=== PATIENT | male | born 1985 | race Two or more races ===

== ENCOUNTER 2021-09-24 12:07 | Outpatient (REF) | payer BC, SELFPAY ==
[2021-09-24 12:25] LABS: MANUAL DIFF FLAG NO
[2021-09-24 13:06] LABS: Basophils Absolute Auto 0.1 X10*3/uL (0.0-0.2); Basophils Percent Auto 0.9 % (0-2); Eosinophils Absolute Auto 0.3 X10*3/uL (0.0-0.4); Eosinophils Percent Auto 5.1 % (0-4); Hematocrit 44.8 % (42.0-52.0); Hemoglobin 14.9 g/dl (14.0-18.0); Imm Gran Abs Auto 0.01 X10*3/uL (0.00-0.03); Imm Gran Pct Auto 0.2 % (0.0-0.4); Lymphocytes Absolute Auto 1.6 X10*3/uL (1.2-4.9); Lymphocytes Percent Auto 29.8 % (20-40); Mean Corpuscular HGB Conc 33.3 g/dl (31.0-36.0); Mean Corpuscular Hemoglobin 29.9 pg (27.0-33.0); Mean Platelet Volume 10.5 fL (9.4-12.4); Monocytes Absolute Auto 0.5 X10*3/uL (0.1-1.2); Monocytes Percent Auto 8.3 % (2-11); Neutrophils Percent Auto 55.7 % (45-73); Platelet Count 273 X10*3/uL (160-400); Red Blood Count 4.98 X10*6/uL (4.60-5.80); White Blood Count 5.4 X10*3/uL (4.8-10.8)
[2021-09-24 13:36] LABS: Alanine Aminotransferase 37 U/L (0-40); Albumin Level 4.2 g/dL (3.5-5.0); Alkaline Phosphatase 80 U/L (39-117); Anion Gap 14 (12-20); Aspartate Amino Transferase 27 U/L (5-37); Bilirubin Total 0.5 mg/dL (0.0-1.0); Blood Urea Nitrogen 16 mg/dL (9-16); Calcium 9.6 mg/dL (8.4-10.2); Carbon Dioxide 22 mmol/L (22-29); Chloride 110 mmol/L (96-108); Cholesterol 177 mg/dL; Estimated Glomerular Filt Rate > 60; Glucose Random 73 mg/dL (60-115); HDL Cholesterol 38 mg/dL; LDL Cholesterol Calculated 115 mg/dl; Potassium 4.5 mmol/L (3.3-5.1); Sodium 141 mmol/L (135-145); Triglycerides 122 mg/dL
[2021-09-24 13:45] LABS: Thyroid Stimulating Hormone 2.26 uIU/mL (0.32-4.0)
[2021-09-24 14:14] LABS: Vitamin B12 793 pg/mL (200-900)
== END 2021-09-24 12:08 | disposition home or self-care (01) ==
LOC: HO.LAB 12:07
PROVIDERS: PCP Internal Medicine; Visit Provider Internal Medicine
DX: F33.9 Major depressive disorder, recurrent, unspecified (principal); E78.00 Pure hypercholesterolemia, unspecified
CPT/HCPCS: 36415; 80053; 80061; 82607; 82746; 84439; 84443; 85025

== ENCOUNTER 2022-02-16 14:37 | Outpatient (REF) | payer BC, SELFPAY ==
[2022-02-16 16:07] LABS: Influenza A PCR NEGATIVE (Negative); Influenza B PCR NEGATIVE (Negative); Resp Syncy Virus RNA Qual PCR NEGATIVE (Negative); SARS COV2 PCR INHOUSE NEGATIVE (Negative)
== END 2022-02-16 14:38 | disposition home or self-care (01) ==
LOC: HO.LNP 14:37
PROVIDERS: Visit Provider Nurse Practitioner Family
DX: J06.9 Acute upper respiratory infection, unspecified (principal); Z20.822 Contact with and (suspected) exposure to COVID-19
CPT/HCPCS: 0241U

== ENCOUNTER 2024-03-18 08:08 | Outpatient (REF) | payer BC, SELFPAY ==
[2024-03-18 08:19] LABS: MANUAL DIFF FLAG NO
[2024-03-18 09:52] LABS: Basophils Absolute Auto 0.1 X10*3/uL (0.0-0.2); Basophils Percent Auto 0.8 % (0-2); Eosinophils Absolute Auto 0.3 X10*3/uL (0.0-0.4); Eosinophils Percent Auto 5.2 % (0-4); Hematocrit 45.9 % (42.0-52.0); Hemoglobin 15.5 g/dl (14.0-18.0); Imm Gran Abs Auto 0.01 X10*3/uL (0.00-0.03); Imm Gran Pct Auto 0.2 % (0.0-0.4); Lymphocytes Absolute Auto 1.8 X10*3/uL (1.2-4.9); Lymphocytes Percent Auto 29.6 % (20-40); Mean Corpuscular HGB Conc 33.8 g/dl (31.0-36.0); Mean Corpuscular Hemoglobin 30.5 pg (27.0-33.0); Mean Corpuscular Volume 90.2 fL (80.0-98.0); Mean Platelet Volume 9.6 fL (9.4-12.4); Monocytes Absolute Auto 0.5 X10*3/uL (0.1-1.2); Monocytes Percent Auto 7.9 % (2-11); Neutrophils Absolute Auto 3.4 x10*3/uL (2.0-8.3); Neutrophils Percent Auto 56.3 % (45-73); Platelet Count 292 X10*3/uL (160-400); Red Blood Count 5.09 X10*6/uL (4.60-5.80); Red Cell Distribution Width 12.5 % (11.0-16.0)
[2024-03-18 11:09] LABS: Alanine Aminotransferase 20 U/L (0-40); Albumin Level 4.2 g/dL (3.5-5.0); Alkaline Phosphatase 56 U/L (39-117); Anion Gap 12 (12-20); Aspartate Amino Transferase 26 U/L (5-37); Bilirubin Total 0.6 mg/dL (0.0-1.0); Blood Urea Nitrogen 13 mg/dL (9-16); Calcium 9.5 mg/dL (8.4-10.2); Carbon Dioxide 28 mmol/L (22-29); Chloride 105 mmol/L (96-108); Cholesterol 227 mg/dL (<200); Estimated Glomerular Filt Rate > 60; Free T4 (Free Thyroxine) 0.89 ng/dL (0.71-1.85); Glucose Random 83 mg/dL (60-115); HDL Cholesterol 40 mg/dL (>40); LDL Cholesterol Calculated 168 mg/dL (<100); Potassium 4.6 mmol/L (3.3-5.1); Sodium 140 mmol/L (135-145); Total Protein 7.3 g/dL (6.5-8.0); Triglycerides 99 mg/dL (<150)
[2024-03-18 11:21] LABS: Folate 14.9 ng/mL (> or = 4.0); Vitamin B12 1012 pg/mL (200-900)
== END 2024-03-18 08:09 | disposition home or self-care (01) ==
LOC: HO.LAB 08:08
PROVIDERS: PCP Internal Medicine; Visit Provider Internal Medicine
DX: E78.00 Pure hypercholesterolemia, unspecified (principal); F33.9 Major depressive disorder, recurrent, unspecified
CPT/HCPCS: 36415; 80053; 80061; 82607; 82746; 84439; 84443; 85025

== ENCOUNTER 2024-03-21 08:43 | Outpatient (AMB) | payer BC, SELFPAY ==
--- NOTE | 2024-03-21 08:44 | A.OFFPC_ITS ---
Vital Signs 03/21/24 08:45 Height 5 ft 11 in Weight 188 lb 0.8 oz BMI 26.2 BP 122/80 Blood Pressure Location Lt brachial Position Sitting Pulse 70 Pulse Source Pulse Oximeter Pulse Oximetry (%) 98 Oxygen Delivery Method Room Air Intake Visit Reasons: PE Vehicle Service Attendant Required: No Allergies NSAIDS (Non-Steroidal Anti-Inflamma Adverse Reaction (Intermediate, Verified 03/21/24 08:45) Abdominal Pain Medication List - Last Reconciled 03/21/24 by Aurelio Johansen MD mirtazapine 7.5 mg PO BEDTIME 90 days multivit with [id number] 0.4-600 mg-mcg (Men's Daily Multivitamin-Mineral) tabs PO Tobacco use date assessed: 03/21/24 Dental Screening Dental Screen Date: 03/21/24 Did you have a dental visit in the last 12 months?: Yes Did you have a dental problem in the last 6 months where you did not have access to dental care?: No Was dental information given to patient?: Patient has dentist HPI PE HPI Details 39-year-old overweight male(noted 9 lb w eight loss) with recurrent major depression coming in for physical exam last seen in March last year. [facility], LAT[facility] Medical History (Updated 03/21/24 @ 08:56 by Aurelio Johansen MD) Skull fracture Toe fracture, left Fracture of arm Insomnia Overweight (BMI 25.0-29.9) Surgical History (Updated 07/30/21 @ 13:47 by Aurelio Johansen MD) S/P tonsillectomy Family History (Updated 03/15/23 @ 08:43 by Aurelio Johansen MD) Mother Glioblastoma Father Alcohol abuse Substance use disorder Mental health disorder Maternal Grandmother Heart attack Social History (Updated 03/21/24 @ 08:58 by Aurelio Johansen MD) Housing: Apartment Alcohol intake: current Comment: once q 2 months 1 glass of wine Patient Tobacco Use Status: Former Tobacco user Tobacco use type: Cigarette Years Smoked: quit 2011 e-Cigarette/Vaping Use: Never Used Second Hand Smoke Exposure: No service: No Current occupational status: employed Cognitive needs: No Hearing needs: No Vision needs: Yes Questionnaire PHQ-9 Over the last 2 weeks, how often have you been bothered by any of the following problems? 1. Little interest or pleasure in doing things: not at all 2. Feeling down, depressed, or hopeless: not at all 3. Trouble falling or staying asleep, or sleeping too much: not at all 4. Feeling tired or having little energy: not at all 5. Poor appetite or overeating: not at all 6. Feeling bad about yourself - or that you are a failure or have let yourself or your family down: not at all 7. Trouble concentrating on things, such as reading the newspaper or watching television: not at all 8. Moving or speaking so slowly that other people could have noticed. Or the opposite - being so fidgety or restless that you have been moving around a lot more than usual: not at all 9. Thoughts that you would be better off or of hurting yourself in some way : not at all Total score: 0 Source: Developed by Drs. Shawn Guzman, Marcia Edwards, Segundo Watters and colleagues, with an educational crystal from [employer]. Thrive Questionnaire Date Thrive assessed: 03/21/24 I am a: Patient What is your living situation today?: I have a steady place to live Within the past 12 months, did the food you bought not last and you didn't have the money to get more?: Never true Within the past 12 months, did you worry whether your food would run out before you got money to buy more?: Never true Do you have trouble paying for medicines?: No Do you have trouble getting transportation to medical appointments?: No Do you have trouble paying your heating and electricity bill?: No Do you have trouble taking care of your child, family member or friend?: No Do you have trouble with day-to-day activities such as bathing, preparing meals, shopping, managing finances, etc.?: No Are you currently unemployed and looking for a job?: No Are you interested in more education?: Yes Please select the resources that you would like help with: None Currently or been in a relationship where the following occur: No concerns reported THRIVE Score: 0 AUDIT C Alcohol Use Questionnaire (AUDIT-C) 1. How often do you have a drink containing alcohol?: Monthly or less 2. How many drinks containing alcohol do you have on a typical day when you are drinking?: 1 or 2 3. How often do you have six or more drinks on one occasion?: Never Total Score: 1 SALINA-7 AMB Questionnaire SALINA-7 Date SALINA - 7 assessed: 03/21/24 Feeling nervous, anxious, or on edge: 0 = Not at all Not being able to stop or control worryin = Not at all Worrying too much about different things: 0 = Not at all Trouble relaxin = Not at all Being so restless that it is hard to sit still: 0 = Not at all Becoming easily annoyed or irritable: 0 = Not at all Feeling afraid as if something awful might happen: 0 = Not at all Total SALINA-7 score (0-4 normal; 5-9 mild; 10-14 moderate; 15-21 severe): 0 Source: Developed by Drs. Shawn Guzman, Marcia Edwards, Segundo Watters and colleagues, with an educational crystal from [employer]. SALINA-7 Assessment Billing SALINA-7 Assessment Tool: SALINA-7 Assessment 65386 Review of Systems Const Denies poor appetite and Denies weakness Eyes Denies no additional complaints ENT Reports Normal hearing present, Denies dizziness, Denies nasal congestion, Denies tinnitus and Denies sore throat Card Denies chest pain, Denies syncope, Denies rapid heart rate and Denies dyspnea Resp Denies cough and Denies dyspnea GI Denies change in stool character, Reports constipation, Denies diarrhea, Denies nausea and Denies vomiting Denies dysuria and Denies urinary frequency Neuro Reports Normal hearing present, Denies confusion, Denies dizziness, Denies syncope and Denies weakness Psych Denies confusion Physical exam (Primary Care) Vital Signs: Last Vital Signs Pulse 70 03/21/24 08:45 BP 122/80 03/21/24 08:45 Pulse Ox 98 03/21/24 08:45 Oxygen Delivery Method Room Air 03/21/24 08:45 BMI result Body Mass Index 26.2 Tobacco/Smoking Status: Tobacco use Status Tobacco use date assessed 03/21/24 03/21/24 08:50 Patient Tobacco Use Status Former Tobacco user 03/21/24 08:50 Tobacco use type Cigarette 03/21/24 08:50 e-Cigarette/Vaping Use Never Used 03/21/24 08:50 PHQ-9: PHQ-9 Score PHQ-9: Total score 0 03/21/24 08:50 Thrive Assessment: Date of Thrive Assessment Date Thrive assessed 03/21/24 03/21/24 08:50 Currently or been in a relationship where the following occur: No concerns reported Const General: No confusion Orientation/consciousness: No confusion HENMT Head: Yes normocephalic Ears: external ears normal and TM's normal bilaterally Face and sinus: Yes normal facial exam Mouth: moist mucous membranes Throat: Yes tonsils normal Eyes Conjunctivae: conjunctivae normal Pupils: Equal, round and reactive pupils present and Pupil accommodation reflex normal Direct Ophthalmoscopy: normal light reflex Neck Neck: No lymphadenopathy Thyroid: Thyroid normal Chest Chest palpation & inspection: normal inspection of the chest Resp Effort & Inspection: normal respiratory effort and no audible wheezes Auscultation: clear to auscultation bilaterally, no crackles, no wheezes and lung sounds not diminished Cardio Rate: regular rate Rhythm: regular rhythm Peripheral pulses: radial pulses present and dorsalis pedis present GI Other: Visual rectal exam is negative Palpation (GI): no masses Auscultation: normal bowel sounds and normoactive bowel sounds Rectal Exam - Male: Yes deferred Male General Exam: Yes normal external exam Skin General skin exam: no rashes or lesions noted Rashes: no rashes Neuro General: No confusion Cranial nerves: Yes Equal, round and reactive pupils present and Yes Normal hearing present Cognition (Neuro): normal cognition Gait exam (Neuro): Normal gait present Motor exam (neuro): 5/5 motor strength present throughout Deep tendon reflexes (DTR's): Right brachioradialis reflex intensity grade: 2+, Left brachioradialis reflex intensity grade: 2+, Right patellar reflex intensity grade: 2+ and Left patellar reflex intensity grade: 2+ Extrem General: No edema Coding Level of Care Code Est Pt Prev Care [id number]) Diagnoses Annual physical exam Z00.00 Overweight (BMI 25.0-29.9) E66.3 Moderate episode of recurrent major depressive disorder F33.1 Active/Remission status: currently active Major depression episode severity: moderate Hypercholesterolemia E78.00 Additional Codes SALINA-7 Assessment Billing - SALINA-7 Assessment Tool: SALINA-7 Assessment 20811 ([id number]) Assessment & Plan Assessment & Plan (1) Annual physical exam: Code(s): Z00.00 - Encounter for general adult medical examination without abnormal findings Category: Medical Plan: Patient is advised to eat healthy, keep well hydrated, keep active and have adequate sleep. (2) Overweight (BMI 25.0-29.9): Code(s): E66.3 - Overweight Category: Medical Plan: Continue with diet and exercise (3) Recurrent major depression: Code(s): F33.9 - Major depressive disorder, recurrent, unspecified Category: Medical Qualifiers: Active/Remission status: currently active Major depression episode severity: moderate Qualified Code(s): F33.1 - Major depressive disorder, recurrent, moderate Plan: Presently on mirtazapine (4) Hypercholesterolemia: Code(s): E78.00 - Pure hypercholesterolemia, unspecified Category: Medical Plan: Avoid fried foods, chicken skin, eggs, butter margarine, pastries and meat. Be it pork or beef they have a lot of cholesterol LDL goal of less than 130 and triglyceride of less than 150 Orders: Orders Lipid Panel 6 Months E78.00 - Pure hypercholesterolemia, unspecified Comprehensive Met. Panel 6 Months E78.00 - Pure hypercholesterolemia, unspecified
[2024-03-21 08:45] VITALS: BP 122/80; PULSE 70; O2SAT 98; BMI 26.2
== END 2024-03-21 09:15 | disposition home or self-care (01) ==
LOC: HO.HMCH 08:43
PROVIDERS: PCP Internal Medicine; Visit Provider Internal Medicine
DX: Z00.00 Encounter for general adult medical examination without abnormal findings (principal); E66.3 Overweight; F33.1 Major depressive disorder, recurrent, moderate; E78.00 Pure hypercholesterolemia, unspecified; Z23 Encounter for immunization

== ENCOUNTER → 2024-03-21 08:43 | Outpatient (BNVA) | payer BC, SELFPAY | PROVIDERS: PCP Internal Medicine; Visit Provider Internal Medicine | DX: Z00.00 Encounter for general adult medical examination without abnormal findings (principal); E66.3 Overweight; Z68.26 Body mass index [BMI] 26.0-26.9, adult; F33.1 Major depressive disorder, recurrent, moderate; E78.00 Pure hypercholesterolemia, unspecified; Z79.899 Other long term (current) drug therapy; Z23 Encounter for immunization | CPT/HCPCS: 90471; 90715; 96127 ==

== ENCOUNTER 2025-03-31 08:40 | Outpatient (AMB) | payer BC, SELFPAY ==
--- NOTE | 2025-03-31 08:45 | MHC.PC.OV ---
Vital Signs 03/31/25 08:46 Height 5 ft 11 in Weight 198 lb BMI 27.6 BP 114/68 Blood Pressure Location Lt brachial Position Sitting Pulse 76 Pulse Source Pulse Oximeter Pulse Oximetry (%) 98 Oxygen Delivery Method Room Air Intake Visit Reasons: Annual Exam Allergies NSAIDS (Non-Steroidal Anti-Inflamma Adverse Reaction (Intermediate, Verified 03/31/25 08:46) Abdominal Pain Medication List - Last Reconciled 03/31/25 by Aurelio Johansen MD mirtazapine 7.5 mg PO BEDTIME 90 days multivit with [id number] 0.4-600 mg-mcg (Men's Daily Multivitamin-Mineral) tabs PO Tobacco use date assessed: 03/31/25 Dental Screening Dental Screen Date: 03/31/25 Did you have a dental visit in the last 12 months?: Yes Did you have a dental problem in the last 6 months where you did not have access to dental care?: No Was dental information given to patient?: Patient has dentist HPI HPI Comments History of Present Illness Details History of Present Illness The patient is a 40-year-old male presenting for an annual physical exam. He has a history of insomnia, depression, and hypercholesterolemia. He takes mirtazapine at night and a men's multivitamin. Regarding his hypercholesterolemia, last year's lab work revealed an LDL of 168, which was a significant increase from 115 in 2021. Other labs from last year, including CBC, electrolytes, renal function (creatinine 1.14), blood sugar, and liver function, were normal. To manage his cholesterol, he has stopped eating eggs, but also reports an increase in meat consumption, specifically beef, since October. The patient has a history of NSAID sensitivity, experiencing kidney pain from medications like ibuprofen 14 years ago, and has avoided them since. Since starting weightlifting in October, he developed shooting arm pain and was treated at an urgent care with a prescription topical NSAID cream, which provided relief. He still experiences some pain with certain movements but denies numbness. His family history is notable for his mother with glioblastoma, a grandmother who had a heart attack, and his father who from a heart issue and had a history of heavy alcohol use. Socially, the patient recently lost his job of 12 years. He denies smoking cigarettes, drinks alcohol rarely, and occasionally smokes marijuana. He is physically active, lifting weights four times a week and biking regularly. Health Maintenance - Visit Type: Annual physical examination. - Screening: Last lipid panel showed an LDL of 168, which is an increase from 115 in 202. - Screening: Advised that colon cancer screening will be recommended starting at age 45. - Vaccinations: Tetanus shot is up to date and flu shot has been received. - Diet Counseling: Advised to reduce red meat intake (pork, beef) and increase plant-based proteins to manage cholesterol. - Exercise Counseling: Patient reports regular exercise with weights and biking, and was encouraged to continue staying active. - Substance Use Counseling: Discussed risks associated with smoking marijuana, including heart attack, stroke, and bladder cancer, and recommended edibles as a safer alternative. - Anticipatory Guidance: Discussed the current season for respiratory illnesses like COVID-19, influenza, and RSV, and advised caution. Social History - Employment: Recently became unemployed after working for a company for 12 years. - Insurance: Currently uninsured, paying for visits [id number]. - Substance Use: Denies use of cigarettes. - Alcohol: Drinks rarely, about once every six months, with a maximum of two glasses of wine. - Illicit Drugs: Reports occasional use of smoked marijuana. - Exercise: Reports having a home gym and lifting weights four times a week. - Activity: Bikes 2-3 times a week, approximately 20 miles per session. - Nutrition: Reports high water intake and avoids juice. - Diet: Has been eating more meat since starting to exercise but has stopped eating eggs. Results - Labs from last year: - CBC: Normal, no anemia. - CMP: Electrolytes, blood sugar, and liver function were normal. - Creatinine: 1.14. - Lipid Panel: LDL cholesterol was 168. - Vitamins: Vitamin B12 was high, and folic acid was normal. - TSH: Normal. [facility] Medical History (Updated 03/21/24 @ 08:56 by Aurelio Johansen MD) Skull fracture Toe fracture, left Fracture of arm Insomnia Overweight (BMI 25.0-29.9) Surgical History (Updated 07/30/21 @ 13:47 by Aurelio Johansen MD) S/P tonsillectomy Family History (Updated 03/31/25 @ 08:58 by Aurelio Johansen MD) Mother Glioblastoma Father Alcohol abuse Substance use disorder Mental health disorder Heart problem Maternal Grandmother Heart attack Social History (Updated 03/31/25 @ 09:00 by Aurelio Johansen MD) Housing: Apartment Alcohol intake: current Comment: once q 6months 1-2 glass of wine Patient Tobacco Use Status: Former Tobacco user Tobacco use type: Cigarette Years Smoked: quit 2011, smokes weeds e-Cigarette/Vaping Use: Never Used Second Hand Smoke Exposure: No service: No Current occupational status: employed Cognitive needs: No Hearing needs: No Vision needs: Yes Questionnaire PHQ-9 Over the last 2 weeks, how often have you been bothered by any of the following problems? 1. Little interest or pleasure in doing things: several days 2. Feeling down, depressed, or hopeless: several days 3. Trouble falling or staying asleep, or sleeping too much: several days 4. Feeling tired or having little energy: several days 5. Poor appetite or overeating: not at all 6. Feeling bad about yourself - or that you are a failure or have let yourself or your family down: several days 7. Trouble concentrating on things, such as reading the newspaper or watching television: not at all 8. Moving or speaking so slowly that other people could have noticed. Or the opposite - being so fidgety or restless that you have been moving around a lot more than usual: not at all 9. Thoughts that you would be better off or of hurting yourself in some way: not at all Total score: 5 Depression Screening Interpretation: Positive Depression Screening Done: Yes Source: Developed by Drs. Shawn Guzman, Marcia Edwards, Segundo Watters and colleagues, with an educational crystal from [employer]. Thrive Questionnaire Date Thrive assessed: 03/28/25 I am a: Patient What is your living situation today?: I have a steady place to live Within the past 12 months, did the food you bought not last and you didn't have the money to get more?: Never true Within the past 12 months, did you worry whether your food would run out before you got money to buy more?: Never true Do you have trouble paying for medicines?: No Do you have trouble getting transportation to medical appointments?: No Do you have trouble paying your heating and electricity bill?: No Do you have trouble taking care of your child, family member or friend?: No Do you have trouble with day-to-day activities such as bathing, preparing meals, shopping, managing finances, etc.?: No Are you currently unemployed and looking for a job?: Yes Are you interested in more education?: Yes Please select the resources that you would like help with: None Currently or been in a relationship where the following occur: No concerns reported THRIVE Score: 0 AUDIT C Alcohol Use Questionnaire (AUDIT-C) 1. How often do you have a drink containing alcohol?: Monthly or less 2. How many drinks containing alcohol do you have on a typical day when you are drinking?: 1 or 2 3. How often do you have six or more drinks on one occasion?: Never Total Score: 1 SALINA-7 AMB Questionnaire SALINA-7 Date SALINA - 7 assessed: 03/31/25 Feeling nervous, anxious, or on edge: 1 = Several days Not being able to stop or control worryin = Several days Worrying too much about different things: 1 = Several days Trouble relaxin = Several days Being so restless that it is hard to sit still: 0 = Not at all Becoming easily annoyed or irritable: 2 = More than half the days Feeling afraid as if something awful might happen: 1 = Several days Total SALINA-7 score (0-4 normal; 5-9 mild; 10-14 moderate; 15-21 severe): 7 Source: Developed by Drs. Shawn Guzman, Marcia Edwards, Segundo Watters and colleagues, with an educational crystal from [employer]. SALINA-7 Assessment Billing SALINA-7 Assessment Tool: SALINA-7 Assessment 83959 Review of Systems Narrative Review of Systems - Constitutional: Reports a 10-pound weight gain. - Eyes: Denies any recent change in vision. - ENT: Reports occasional nasal congestion. - Respiratory: Denies shortness of breath and cough. - Cardiovascular: Denies chest pain or discomfort. - Gastrointestinal: Reports regular bowel movements once or twice daily. - Genitourinary: Reports occasional nocturia (once per night). - Musculoskeletal: Reports mild, residual arm pain with certain movements following a recent strain. - Neurological: Denies dizziness or syncope. - All other systems reviewed and are negative. Const Denies poor appetite and Denies weakness Eyes Denies no additional complaints ENT Reports Normal hearing present, Denies dizziness, Denies nasal congestion, Denies tinnitus and Denies sore throat Card Denies chest pain, Denies syncope, Denies rapid heart rate and Denies dyspnea Resp Denies cough and Denies dyspnea GI Denies change in stool character, Reports constipation, Denies diarrhea, Denies nausea and Denies vomiting Denies dysuria and Denies urinary frequency Neuro Reports Normal hearing present, Denies confusion, Denies dizziness, Denies syncope and Denies weakness Psych Denies confusion Physical exam (Primary Care) Vital Signs: Last Vital Signs Pulse 76 03/31/25 08:46 BP 114/68 03/31/25 08:46 Pulse Ox 98 03/31/25 08:46 Oxygen Delivery Method Room Air 03/31/25 08:46 BMI result Body Mass Index 27.6 Tobacco/Smoking Status: Tobacco use Status Tobacco use date assessed 03/31/25 03/31/25 08:54 Patient Tobacco Use Status Former Tobacco user 03/31/25 09:00 Tobacco use type Cigarette 03/31/25 09:00 e-Cigarette/Vaping Use Never Used 03/31/25 09:00 PHQ-9: PHQ-9 Score PHQ-9: Total score 5 03/31/25 16:56 Depression Screening Interpretation: Positive Thrive Assessment: Date of Thrive Assessment Date Thrive assessed 03/28/25 03/31/25 08:54 Currently or been in a relationship where the following occur: No concerns reported Narrative Physical Exam General: Cooperative, healthy appearing, comfortable, no acute distress and well developed Orientation: Patient oriented x3 Limitations: No limitations Head: Normal to inspection Ears: Hearing grossly normal bilaterally Nose: Normal external nose present Face and sinus: Normal facial exam Eyes: Appearance normal, both eyes and all related structures Neck: Normal visual inspection and Yes full ROM Respiratory: Normal respiratory effort and able to speak in complete sentences. Clear to auscultation bilaterally Cardiovascular: Regular rate and rhythm. Normal S1 and S2 GI: Normal to inspection. Soft to palpation and nontender Skin: No rashes or lesions noted Neuro: Patient oriented x3 Extremities: Normal to inspection Const General: No confusion Orientation/consciousness: No confusion HENMT Head: Yes normocephalic Ears: external ears normal and TM's normal bilaterally Face and sinus: Yes normal facial exam Mouth: moist mucous membranes Throat: Yes tonsils normal Eyes Conjunctivae: conjunctivae normal Pupils: Equal, round and reactive pupils present and Pupil accommodation reflex normal Direct Ophthalmoscopy: normal light reflex Neck Neck: No lymphadenopathy Thyroid: Thyroid normal Chest Chest palpation & inspection: normal inspection of the chest Resp Effort & Inspection: normal respiratory effort and no audible wheezes Auscultation: clear to auscultation bilaterally, no crackles, no wheezes and lung sounds not diminished Cardio Rate: regular rate Rhythm: regular rhythm Peripheral pulses: radial pulses present and dorsalis pedis present GI Other: Visual exam normal Palpation (GI): no masses Auscultation: normal bowel sounds and normoactive bowel sounds Rectal Exam - Male: Yes deferred Male General Exam: Yes normal external exam Skin General skin exam: no rashes or lesions noted Rashes: no rashes Neuro General: No confusion Cranial nerves: Yes Equal, round and reactive pupils present and Yes Normal hearing present Cognition (Neuro): normal cognition Gait exam (Neuro): Normal gait present Motor exam (neuro): 5/5 motor strength present throughout Deep tendon reflexes (DTR's): Right brachioradialis reflex intensity grade: 2+, Left brachioradialis reflex intensity grade: 2+, Right patellar reflex intensity grade: 2+ and Left patellar reflex intensity grade: 2+ Extrem General: No edema Office Procedures Flu Questionnaire Does the patient have a severe egg allergy?: No Does the patient have severe life threatening allergies?: No Does the patient have a fever or illness today?: No Has the patient ever had Guillain-Troy Syndrome?: No Has the patient ever had any past reaction to a flu shot?: No Immunizations Fluarix [id number] (PF) 45 mcg (15 mcg x 3)/0.5 mL IM syringe Performing Provider: Aurelio Johansen MD [facility] [place] Administered by: Valencia Escobar CMA on 03/31/25 08:54 Dose Route Admin Location Dispensed Lot Number Expiration Date [facility] Bus Dispatcher [address] 0.5 mL IM Left Deltoid 0.5 mL [id number] 11/11/25 [id number] [employer] VIS Given Date VIS Provided VIS Publication Date 03/31/25 Single Vaccine 24 Eligibility Eligibility Date Funding Source Not [facility] Eligible 03/31/25 Private Coding Level of Care Code Est Pt Prev Care 40-64y(47300) Diagnoses Annual physical exam Z00.00 Hypercholesterolemia E78.00 Moderate episode of recurrent major depressive disorder F33.1 Active/Remission status: currently active Major depression episode severity: moderate Overweight (BMI 25.0-29.9) E66.3 Additional Codes SALINA-7 Assessment Billing - SALINA-7 Assessment Tool: SALINA-7 Assessment 35742 ([id number]) Assessment & Plan Assessment & Plan (1) Annual physical exam: Code(s): Z00.00 - Encounter for general adult medical examination without abnormal findings Category: Medical Plan: Patient is advised to eat healthy, keep well hydrated, keep active and have adequate sleep. (2) Hypercholesterolemia: Code(s): E78.00 - Pure hypercholesterolemia, unspecified Category: Medical Plan: Avoid fried foods, chicken skin, eggs, butter margarine, pastries and meat. Be it pork or beef they have a lot of cholesterol LDL goal of less than 130 and triglyceride of less than 150 (3) Recurrent major depression: Code(s): F33.9 - Major depressive disorder, recurrent, unspecified Category: Medical Qualifiers: Active/Remission status: currently active Major depression episode severity: moderate Qualified Code(s): F33.1 - Major depressive disorder, recurrent, moderate Plan: Stable (4) Overweight (BMI 25.0-29.9): Code(s): E66.3 - Overweight Category: Medical Plan Plan Patient was informed and verbally consented to the use of an ambient scribe for clinic note documentation during this visit. 1. Hypercholesterolemia The patient's LDL cholesterol has worsened, increasing from 115 in 2022 to 168 on the most recent labs. This may be related to an increase in red meat consumption. The treatment goal is an LDL level below 130 and triglyceride level below 150. The plan includes counseling on dietary changes, specifically reducing red meat intake and increasing plant-based proteins. Repeat blood work is deferred until the patient obtains health insurance. 2. Annual Health Maintenance The patient presented for a routine annual physical exam. A physical exam was performed and was largely unremarkable. Health maintenance topics were reviewed, including confirmation that his tetanus and influenza vaccinations are up to date. He was advised that colon cancer screening will be recommended at age 45. Anticipatory guidance was provided regarding seasonal respiratory illnesses. 3. Musculoskeletal Arm Pain The patient reported arm pain after starting a weightlifting program, which was treated with a topical cream from an urgent care clinic. The pain has mostly resolved but some discomfort remains with certain movements. The patient was reassured that this is typically not a permanent issue. No further intervention is planned at this time. 4. Substance Use Counseling The patient reports occasional marijuana smoking. He was counseled on the associated increased risks of heart attacks, strokes, and bladder cancer with smoking marijuana. It was recommended to consider edibles as a safer alternative. 5. Insomnia The patient has a history of insomnia and takes mirtazapine at night. The plan is to continue the present medication. Counseling was also discussed as part of the plan. Discussion Notes I reviewed the patient's lab work from last year, noting the significant increase in his LDL cholesterol to 168 from 115 in 2021. We discussed dietary management, and I recommended reducing red meat consumption while increasing plant-based proteins. We also discussed his marijuana use, and I counseled him on the risks associated with smoking, including an increased risk for heart attacks, strokes, and bladder cancer. I advised that edibles are a safer alternative to inhaled products. Regarding health maintenance, I confirmed his vaccinations are up to date and informed him that colon cancer screening will be due at age 45. We agreed to defer new blood work until he secures health insurance. I encouraged him to continue his exercise regimen and provided anticipatory guidance on seasonal respiratory viruses. Patient Instructions - To help lower your cholesterol, eat less red meat, like beef and pork, and try to eat more plant-based proteins. - Continue your regular exercise routine, as staying active is very good for your health. - Be aware that smoking marijuana has been linked to increased risks for heart attack, stroke, and bladder cancer. - If you choose to use marijuana, edibles are a safer option than smoking. - Continue taking your Mirtazapine medication as prescribed. - We will arrange for new blood work after your new health insurance becomes active. - Your next major screening will be for colon cancer, which is recommended around age 45. - Be careful during this time of year, as illnesses like the flu and COVID-19 are common. Orders: Orders Influenza [id number] Immunization Today Z23 - Encounter for immunization
[2025-03-31 08:46] VITALS: BP 114/68; PULSE 76; O2SAT 98; BMI 27.6
== END 2025-03-31 10:10 | disposition home or self-care (01) ==
PROVIDERS: PCP Internal Medicine; Visit Provider Internal Medicine
DX: Z00.00 Encounter for general adult medical examination without abnormal findings (principal); E78.00 Pure hypercholesterolemia, unspecified; F33.1 Major depressive disorder, recurrent, moderate; E66.3 Overweight; Z23 Encounter for immunization

== ENCOUNTER → 2025-03-31 08:40 | Outpatient (BNVA) | payer SELFPAY | PROVIDERS: PCP Internal Medicine; Visit Provider Internal Medicine | DX: Z00.00 Encounter for general adult medical examination without abnormal findings (principal); E78.00 Pure hypercholesterolemia, unspecified; F33.1 Major depressive disorder, recurrent, moderate; E66.3 Overweight; M79.18 Myalgia, other site; G47.00 Insomnia, unspecified; Z23 Encounter for immunization | CPT/HCPCS: 90471; 90656; 96127 ==